=== PATIENT | female | born 2000 | race Caucasian/White ===

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

== ENCOUNTER 2024-11-09 00:52 | Emergency (ER) | payer OTHER ==
[~2024-11-09 00:52] MED LIST changes: +ALBU8.5H8 INH; +PRED20TA PO
== END 2024-11-09 02:24 | disposition left against medical advice (07) ==
LOC: ER 00:59
DX: Z53.21 Procedure and treatment not carried out due to patient leaving prior to being seen by health care provider (principal)

== ENCOUNTER 2025-03-23 13:27 | Emergency (ER) | payer OTHER | END 2025-03-23 15:05 | disposition left against medical advice (07) | LOC: ER 13:58 | DX: Z00.00 Encounter for general adult medical examination without abnormal findings (principal); Z53.21 Procedure and treatment not carried out due to patient leaving prior to being seen by health care provider ==